=== PATIENT | female | born 1945 | race Caucasian/White ===

== ENCOUNTER 2022-06-20 08:55 | Emergency (ER) | payer MEDICARE, BC ==
[~2022-06-20] VITALS: Ht 167.6 cm; Wt 79.4 kg
[~2022-06-20 08:55] MED LIST: ATIVAN0.5 MG PO; BETIMOL5 M1; SYNTHROID125 MCG PO; ZOCOR20 MG PO
[2022-06-20 11:20] VITALS: BP 138/83
== END 2022-06-20 10:20 | disposition home or self-care (01) ==
LOC: ER 09:04
DX: G89.18 Other acute postprocedural pain (principal); M25.551 Pain in right hip; C34.91 Malignant neoplasm of unspecified part of right bronchus or lung; I10 Essential (primary) hypertension; E03.9 Hypothyroidism, unspecified; F41.9 Anxiety disorder, unspecified
CPT/HCPCS: 99283